=== PATIENT | male | born 1955 | race African-American/Black ===

== ENCOUNTER 2016-12-28 18:35 | Inpatient (IN) | payer MEDICARE, MEDICAID ==
[~2016-12-28] VITALS: Ht 180.3 cm; Wt 89.4 kg
[2016-12-28] MEDS ORDERED: SODIUM CHLORIDE 0.9% 1,000 ML IV ONE ×3 (19:30→21:30)
[2016-12-28 19:55] LABS: HEMATOCRIT. 34.2 % (42.0-52.0); HEMOGLOBIN. 11.2 g/dL (14.0-18.0); MEAN CORPUSCULAR HEMOGLOBIN 29.6 pg (28.0-32.0); MEAN CORPUSCULAR VOLUME 90.6 fL (80.0-94.0); MEAN PLATELET VOLUME 7.3 fl (7.4-10.4); PLATELET 420 x1000/uL (130-400); RED BLOOD CELL COUNT 3.77 mill/uL (4.7-6.1)
[2016-12-28 19:59] LABS: INR 1.1; PROTHROMBIN TIME 11.5 sec
[2016-12-28 20:01] LABS: CHLORIDE 99 mEq/L (98-107)
[2016-12-28 20:06] LABS: CARBON DIOXIDE 28 mEq/L (21-32); ETHANOL BLOOD < 10 mg/dL
[2016-12-28 20:10] LABS: BETA HYDROXYBUTYRATE 0.8 mMol/L (0.0-0.3)
[2016-12-28 20:39] LABS: PLATELET ESTIMATE SLIGHTLY INCREASED
[2016-12-28] MEDS ORDERED: LORAZEPAM 2MG/ML CPJ IV ONE (21:30)
[2016-12-28 23:04] LABS: CLARITY URINE CLEAR (CLEAR); COLOR URINE YELLOW (YELLOW); GLUCOSE URINE 3+ (NEGATIVE); KETONES URINE 1+ (NEGATIVE); LEUKOCYTE ESTERASE URINE NEGATIVE (NEGATIVE); NITRITE URINE NEGATIVE (NEGATIVE); OCCULT BLOOD URINE 2+ (NEGATIVE); PROTEIN URINE 1+ (NEGATIVE); SPECIFIC GRAVITY URINE 1.032 (1.005-1.030)
[2016-12-28 23:14] LABS: AMMONIA 41 uMol/L (<32)
[2016-12-28 23:24] LABS: *AMPHETAMINES SCREEN URINE NEGATIVE (NEGATIVE); *BARBITURATES SCREEN URINE NEGATIVE (NEGATIVE); *BENZODIAZEPINES SCREEN URINE NEGATIVE (NEGATIVE); *COCAINE SCREEN URINE NEGATIVE (NEGATIVE); CANNABINOID URINE SCREEN NEGATIVE (NEGATIVE); METHADONE URINE SCREEN NEGATIVE (NEGATIVE); OPIATES URINE SCREEN NEGATIVE (NEGATIVE); PHENCYCLIDINE URINE SCREEN NEGATIVE (NEGATIVE)
[2016-12-28] MEDS ORDERED: LIDOCAINE HCL/EPINEPHRINE 1%-EPI 1:100,000 50 ML VIAL INFIL ONE (23:30)
[2016-12-28] MEDS ORDERED: LIDOCAINE HCL/EPINEPHRINE 1%-EPI 1:100,000 20 ML VIAL INFIL ONE (23:30)
[2016-12-28] MEDS ORDERED: LIDOCAINE HCL/EPINEPHRINE 1%-EPI 1:100,000 30 ML VIAL INFIL ONE (23:30)
[2016-12-28] MEDS ORDERED: LIDOCAINE HCL 1%/EPI 1:200,000 30 ML VIAL MC NR (23:46)
[2016-12-29] MEDS ORDERED: MORPHINE SULFATE 4 MG/ML CPJ (NOT FOR IM USE) IV ONE
[2016-12-29] MEDS ORDERED: LORAZEPAM 2MG/ML CPJ IV ONE
[2016-12-29] MEDS ORDERED: CEFTRIAXONE 2 G PREMIX 50 ML IV ONE (00:30)
[2016-12-29] MEDS ORDERED: VANCOMYCIN 1 G PREMIX 200 ML IV SCH (00:30)
[2016-12-29] MEDS ORDERED: INSULIN REGULAR (HUMULIN R) 300UNITS/3ML IV ONE (01:30)
[2016-12-29 04:00] VITALS: BP 125/74
[2016-12-29] MEDS ORDERED: MORPHINE SULFATE 4 MG/ML CPJ (NOT FOR IM USE) IV PRN (04:15)
[2016-12-29] MEDS: SODIUM CHLORIDE 0.45% 1,000 ML IV SCH ×2 (04:15→17:31)
[2016-12-29] MEDS ORDERED: DEXTROSE 50% WATER 50ML SYRINGE IV PRN (04:30)
[2016-12-29 04:38] VITALS: BP 110/62
[2016-12-29] MEDS: BLOOD SUGAR DIAGNOSTIC STRIP TEST SCH ×4 (05:54→20:11)
[2016-12-29] MEDS: INSULIN LISPRO 100 UNITS/ML SUBCUT SCH ×4 (05:55→21:01)
[2016-12-29 08:00] VITALS: BP 108/63
[2016-12-29] MEDS: ENOXAPARIN 40MG/0.4ML SYR SUBCUT SCH (08:19)
[2016-12-29] MEDS: ASPIRIN 81MG TABLET PO SCH (08:19)
[2016-12-29] MEDS: PANTOPRAZOLE SODIUM 40 MG/VIAL IV SCH (08:20)
[2016-12-29 09:47] LABS: BASOPHILS % 0.4 % (0.0-2.0); EOSINOPHILS % 0.3 % (0.0-5.0); HEMATOCRIT. 31.7 % (42.0-52.0); HEMOGLOBIN. 10.5 g/dL (14.0-18.0); MEAN CORPUSCULAR HEMOGLOBIN 29.5 pg (28.0-32.0); MEAN CORPUSCULAR VOLUME 89.5 fL (80.0-94.0); MEAN PLATELET VOLUME 7.5 fl (7.4-10.4); MONOCYTES % 7.9 % (2.0-8.0); NEUTROPHILS % 79.4 % (40.0-76.0); PLATELET 380 x1000/uL (130-400); RED BLOOD CELL COUNT 3.54 mill/uL (4.7-6.1); RED CELL DISTRIBUTION WIDTH 13.8 % (11.6-14.6)
[2016-12-29 10:29] LABS: CARBON DIOXIDE 25 mEq/L (21-32); CHLORIDE 106 mEq/L (98-107); CREATINE KINASE 398 IU/L (39-308); CREATINE KINASE MB FRACTION 1.1 ng/mL (0.5-3.6); TROPONIN I 0.07 ng/mL (0.00-0.04)
[2016-12-29 12:00] VITALS: BP 112/63
[2016-12-29] MEDS: PIPERACILLIN/TAZ 3.375G PREMIX 50 ML IV SCH ×3 (14:24→23:02)
[2016-12-29 16:00] VITALS: BP 117/73
[2016-12-29 17:32] LABS: CREATINE KINASE MB FRACTION 0.9 ng/mL (0.5-3.6); TROPONIN I 0.03 ng/mL (0.00-0.04)
[2016-12-29 20:00] VITALS: BP 136/79
[2016-12-29] MEDS ORDERED: INSULIN DETEMIR UD 100 UNITS/ML SYR SUBCUT SCH (22:00)
[2016-12-29 23:10] LABS: CREATINE KINASE 435 IU/L (39-308); CREATINE KINASE MB FRACTION < 0.5 ng/mL (0.5-3.6); TROPONIN I 0.06 ng/mL (0.00-0.04)
[2016-12-30] MEDS ORDERED: ACETAMINOPHEN 325MG TABLET PO PRN (00:30)
[2016-12-30 04:00] VITALS: BP 115/73
[2016-12-30] MEDS: PIPERACILLIN/TAZ 3.375G PREMIX 50 ML IV SCH ×4 (05:10→17:01)
[2016-12-30] MEDS: SODIUM CHLORIDE 0.45% 1,000 ML IV SCH (05:53)
[2016-12-30] MEDS: BLOOD SUGAR DIAGNOSTIC STRIP TEST SCH ×4 (06:11→21:27)
[2016-12-30] MEDS: INSULIN LISPRO 100 UNITS/ML SUBCUT SCH ×4 (06:16→21:26)
[2016-12-30 08:00] VITALS: BP 111/70
[2016-12-30] MEDS: PANTOPRAZOLE SODIUM 40 MG/VIAL IV SCH (09:14)
[2016-12-30] MEDS: ASPIRIN 81MG TABLET PO SCH (09:14)
[2016-12-30] MEDS: ENOXAPARIN 40MG/0.4ML SYR SUBCUT SCH (09:14)
[2016-12-30 09:37] LABS: BASOPHILS % 0.4 % (0.0-2.0); EOSINOPHILS % 0.5 % (0.0-5.0); HEMATOCRIT. 30.1 % (42.0-52.0); HEMOGLOBIN. 9.9 g/dL (14.0-18.0); LYMPHOCYTES % 9.2 % (20.0-50.0); MEAN CORPUSCULAR HEMOGLOBIN 29.4 pg (28.0-32.0); MEAN CORPUSCULAR VOLUME 89.9 fL (80.0-94.0); MEAN PLATELET VOLUME 7.4 fl (7.4-10.4); MONOCYTES % 7.3 % (2.0-8.0); NEUTROPHILS % 82.6 % (40.0-76.0); PLATELET 331 x1000/uL (130-400); RED BLOOD CELL COUNT 3.35 mill/uL (4.7-6.1); RED CELL DISTRIBUTION WIDTH 13.7 % (11.6-14.6)
[2016-12-30] MEDS ORDERED: VANCOMYCIN 1 G PREMIX 200 ML IV SCH (11:00)
[2016-12-30 12:00] VITALS: BP 143/86
[2016-12-30 16:23] VITALS: BP 130/79
[2016-12-30 20:00] VITALS: BP 116/63
[2016-12-30] MEDS: INSULIN DETEMIR UD 100 UNITS/ML SYR SUBCUT SCH (21:27)
[2016-12-30] MEDS ORDERED: VANCOMYCIN 750 MG PREMIX 150 ML IV SCH (23:00)
[2016-12-31] VITALS: BP 121/68
[2016-12-31] MEDS: SODIUM CHLORIDE 0.45% 1,000 ML IV SCH ×3 (00:04→23:42)
[2016-12-31 04:00] VITALS: BP 129/75
[2016-12-31] MEDS: PIPERACILLIN/TAZ 3.375G PREMIX 50 ML IV SCH ×4 (05:35→23:42)
[2016-12-31 06:32] LABS: BASOPHILS % 0.6 % (0.0-2.0); EOSINOPHILS % 0.7 % (0.0-5.0); LYMPHOCYTES % 11.1 % (20.0-50.0); MEAN CORPUSCULAR HEMOGLOBIN 29.7 pg (28.0-32.0); MEAN CORPUSCULAR VOLUME 89.6 fL (80.0-94.0); MEAN PLATELET VOLUME 7.3 fl (7.4-10.4); NEUTROPHILS % 81.6 % (40.0-76.0); PLATELET 326 x1000/uL (130-400); RED BLOOD CELL COUNT 3.35 mill/uL (4.7-6.1); RED CELL DISTRIBUTION WIDTH 13.4 % (11.6-14.6)
[2016-12-31] MEDS: BLOOD SUGAR DIAGNOSTIC STRIP TEST SCH ×4 (06:36→21:42)
[2016-12-31] MEDS ORDERED: DEXAMETHASONE 4MG/ML 1ML VIAL ONE (07:03)
[2016-12-31] MEDS ORDERED: LIDOCAINE HCL 1% 20ML VIAL (Pyxis) INJ ONE ×2 (07:04→07:22)
[2016-12-31] MEDS ORDERED: NORMAL SALINE 0.9% 10 ML SYR ONE (07:04)
[2016-12-31] MEDS ORDERED: BUPIVACAINE HCL/PF 0.5% (5MG/ML) 10ML ONE (07:04)
[2016-12-31] MEDS ORDERED: GENTAMICIN SULF 40MG/ML 2ML VIAL ONE (07:04)
[2016-12-31] MEDS ORDERED: BACITRACIN ZINC 15GM TUBE TOP ONE (07:04)
[2016-12-31] MEDS ORDERED: BACITRACIN 50,000 UNITS/VIAL ONE (07:05)
[2016-12-31 07:17] LABS: CARBON DIOXIDE 26 mEq/L (21-32); CHLORIDE 105 mEq/L (98-107)
[2016-12-31] MEDS ORDERED: FENTANYL CITRATE/PF 50MCG/ML 2ML VIAL ONE ×2 (07:20→08:01)
[2016-12-31] MEDS ORDERED: MIDAZOLAM HCL 2 MG/2 ML VIAL ONE ×2 (07:20→08:01)
[2016-12-31] MEDS ORDERED: PROPOFOL 200MG/20ML VIAL IV ONE (07:22)
[2016-12-31] MEDS ORDERED: DIPHENHYDRAMINE 50MG/ML VIAL ONE (07:24)
[2016-12-31] MEDS: FAMOTIDINE 20MG TABLET PO SCH ×2 (09:00→18:17)
[2016-12-31] MEDS ORDERED: MORPHINE SULFATE 2 MG/ML CPJ (NOT FOR IM USE) IV PRN (09:00)
[2016-12-31] MEDS: ASPIRIN 81MG TABLET PO SCH (09:00)
[2016-12-31] MEDS: ENOXAPARIN 40MG/0.4ML SYR SUBCUT SCH (09:00)
[2016-12-31 12:00] VITALS: BP 130/77
[2016-12-31] MEDS: INSULIN LISPRO 100 UNITS/ML SUBCUT SCH ×3 (12:27→21:41)
[2016-12-31] MEDS: VANCOMYCIN 1 G PREMIX 200 ML IV SCH (13:28)
[2016-12-31 16:00] VITALS: BP 128/65
[2016-12-31] MEDS ORDERED: TETANUS, DIPHTHERIA, PERTUSSIS VAC/PF 0.5ML (>7YR OLD) IM ONE (18:00)
[2016-12-31 20:00] VITALS: BP 124/69
[2016-12-31] MEDS: INSULIN DETEMIR UD 100 UNITS/ML SYR SUBCUT SCH (21:42)
[2017-01-01] VITALS: BP 132/70
[2017-01-01] MEDS: VANCOMYCIN 1 G PREMIX 200 ML IV SCH ×2 (00:45→12:42)
[2017-01-01 04:00] VITALS: BP 143/79
[2017-01-01] MEDS: PIPERACILLIN/TAZ 3.375G PREMIX 50 ML IV SCH ×4 (05:06→23:08)
[2017-01-01 06:30] LABS: CARBON DIOXIDE 24 mEq/L (21-32); CHLORIDE 99 mEq/L (98-107)
[2017-01-01] MEDS: INSULIN LISPRO 100 UNITS/ML SUBCUT SCH ×4 (06:50→20:38)
[2017-01-01] MEDS: BLOOD SUGAR DIAGNOSTIC STRIP TEST SCH ×4 (06:50→20:38)
[2017-01-01 08:00] VITALS: BP 128/76
[2017-01-01 09:28] LABS: BASOPHILS % 0.6 % (0.0-2.0); EOSINOPHILS % 0.8 % (0.0-5.0); HEMATOCRIT. 30.7 % (42.0-52.0); HEMOGLOBIN. 10.3 g/dL (14.0-18.0); LYMPHOCYTES % 10.9 % (20.0-50.0); MEAN CORPUSCULAR HEMOGLOBIN 29.8 pg (28.0-32.0); MEAN CORPUSCULAR VOLUME 89.3 fL (80.0-94.0); MEAN PLATELET VOLUME 8.6 fl (7.4-10.4); MONOCYTES % 6.2 % (2.0-8.0); NEUTROPHILS % 81.5 % (40.0-76.0); PLATELET 364 x1000/uL (130-400); RED BLOOD CELL COUNT 3.44 mill/uL (4.7-6.1); RED CELL DISTRIBUTION WIDTH 13.6 % (11.6-14.6)
[2017-01-01] MEDS: FAMOTIDINE 20MG TABLET PO SCH ×2 (09:44→17:30)
[2017-01-01] MEDS: ENOXAPARIN 40MG/0.4ML SYR SUBCUT SCH (09:45)
[2017-01-01] MEDS: ASPIRIN 81MG TABLET PO SCH (09:45)
[2017-01-01] MEDS: SODIUM CHLORIDE 0.45% 1,000 ML IV SCH (11:52)
[2017-01-01 12:00] VITALS: BP 131/79
[2017-01-01 16:36] VITALS: BP 140/77
[2017-01-01 20:00] VITALS: BP 138/73
[2017-01-01] MEDS: INSULIN DETEMIR UD 100 UNITS/ML SYR SUBCUT SCH (21:18)
[2017-01-02] VITALS: BP 124/72
[2017-01-02] MEDS: VANCOMYCIN 1 G PREMIX 200 ML IV SCH (00:38)
[2017-01-02] MEDS: SODIUM CHLORIDE 0.45% 1,000 ML IV SCH (00:39)
[2017-01-02 03:53] VITALS: BP 116/71
[2017-01-02 04:00] VITALS: BP 116/71
[2017-01-02] MEDS: PIPERACILLIN/TAZ 3.375G PREMIX 50 ML IV SCH (05:30)
[2017-01-02 07:50] LABS: BASOPHILS % 0.4 % (0.0-2.0); EOSINOPHILS % 1.2 % (0.0-5.0); HEMATOCRIT. 30.7 % (42.0-52.0); LYMPHOCYTES % 12.9 % (20.0-50.0); MEAN CORPUSCULAR HEMOGLOBIN 29.1 pg (28.0-32.0); MEAN CORPUSCULAR VOLUME 89.8 fL (80.0-94.0); MEAN PLATELET VOLUME 7.7 fl (7.4-10.4); MONOCYTES % 8.9 % (2.0-8.0); NEUTROPHILS % 76.6 % (40.0-76.0); PLATELET 366 x1000/uL (130-400); RED BLOOD CELL COUNT 3.42 mill/uL (4.7-6.1); RED CELL DISTRIBUTION WIDTH 13.7 % (11.6-14.6)
[2017-01-02 08:00] VITALS: BP 123/70
[2017-01-02] MEDS: ASPIRIN 81MG TABLET PO SCH (08:56)
[2017-01-02] MEDS: FAMOTIDINE 20MG TABLET PO SCH (08:56)
[2017-01-02] MEDS: ENOXAPARIN 40MG/0.4ML SYR SUBCUT SCH (08:57)
[2017-01-02 12:00] VITALS: BP 116/68
== END 2017-01-02 11:09 | DRG 853 ==
LOC: ER 19:33 → 8WST 12-29 00:26 → INTOOBSV 12-29 00:26 → OBSVTOIN 12-29 00:26 → ENRESERV 12-29 02:13 → 8WST 12-29 03:00
PROVIDERS: ADMIT Internal Medicine; ATTEND Internal Medicine
PROC: 0JBQ0ZZ Excision of Right Foot Subcutaneous Tissue and Fascia, Open Approach (ICD-10-PCS; principal; 2016-12-31 07:30)
DX: A41.9 Sepsis, unspecified organism (principal); G93.40 Encephalopathy, unspecified; L02.611 Cutaneous abscess of right foot; E11.621 Type 2 diabetes mellitus with foot ulcer; E11.65 Type 2 diabetes mellitus with hyperglycemia; I10 Essential (primary) hypertension; L97.509 Non-pressure chronic ulcer of other part of unspecified foot with unspecified severity
CPT/HCPCS: 36415; 62270; 70450; 71010; 73630; 73721; 80048; 80053; 80202; 80305; 81001; 82010; 82140; 82550; 82553; 82962; 83036; 83605; 83735; 84484; 85025; 85610; 86592; 87040; 87070; 87075; 87077; 87086; 87205; 88304; 89050; 90715; 93005; 93923; 93971; 96361; 96365; 96366; 96367; 96375; 96376; 97162; 97166; 99291; A4216; C9113; G0482; J0696; J1100; J1200; J1580; J1650; J1815; J2060; J2250; J2270; J2543; J2704; J3010; J3370; J3490; J7030